=== PATIENT | male | born 1965 | race Caucasian/White ===

== ENCOUNTER 2023-07-07 10:26 | Emergency (ER) | payer OTHER, SELFPAY ==
[2023-07-07 10:34] VITALS: BP 124/59; PULSE 98; RESP 18; TEMP 36.7; O2SAT 95; BMI 27.8
--- NOTE | 2023-07-07 10:41 | W.ED.BACK ---
HPI - Back Pain/Injury General: Chief Complaint: Back Pain/Injury Stated Complaint: Hurt back Time Seen by Provider: 07/07/23 10:41 Source: patient Mode of arrival: ambulatory Limitations: no limitations History of Present Illness: Patient is a very nice 57-year-old male who presents to ED today with a complaint of lower back pain. Patient states he was crossing a fence when his boot got caught up causing him to fall onto the left hip. Patient states when he struck the ground he heard a pop in his back. Patient states he then laid on the ground as he could not move secondary to pain. He was later able to get up and was ambulatory here in the emergency department. He states pain does not radiate anywhere apart from his lower back. He is not having any numbness, tingling, loss of sensation to his lower extremities. Denies chest or abdominal pain. He states the left hip is not painful. MD elicited complaint: back pain Onset (ago): hour(s) Timing: constant Severity: moderate Similar Symptoms Previously: No Location: lumbar spine, right lower back and left lower back Radiation: none Exacerbating factors: movement and sitting upright Relieving factors: supine Context: turning/twisting and fall Associated symptoms: Deny abdominal pain, chills, dysuria, fatigue, fever(s), hematuria or syncope Work related injury: No Review of Systems Const: Denies: fever(s), chills, body aches, fatigue or malaise Eyes: Denies: change in vision Card: Denies: chest pain, palpitations, lightheadedness, syncope or pre-syncope Resp: Denies: dyspnea GI: Denies: abdominal pain : Denies: flank pain, dysuria or hematuria Musc: Reports: back pain; Denies: neck pain, extremity pain, extremity swelling, joint pain or joint swelling Skin/Breast: Denies: rash Neuro: Denies: headache(s), numbness in extremities, weakness in extremities or sensory changes Physical Exam Const: COMMON NORMALS: average body habitus, patient oriented x3, no limitations, healthy appearing, alert and well nourished GENERAL APPEARANCE: cooperative and in distress (appears uncomfortable secondary to pain) ORIENTATION/CONSCIOUSNESS: Yes awake, Yes oriented to person, Yes oriented to place and Yes oriented to time HENMT: COMMON NORMALS: normocephalic and atraumatic HEAD & SCALP: normal to inspection, normocephalic and atraumatic Resp: COMMON NORMALS: normal respiratory effort Cardio: COMMON NORMALS: regular rate and regular rhythm RATE: regular rate RHYTHM: regular rhythm GI: COMMON NORMALS: Normal to inspection, nondistended, normoactive bowel sounds present, Soft to palpation, non-tender and no masses PALPATION: Yes Soft to palpation : COMMON NORMALS: Yes no CVA tenderness BLADDER/KIDNEY EXAM: Yes no CVA tenderness Back/Pelvis: COMMON NORMALS: no CVA tenderness, thoracic and lumbar spine normal to inspection and no thoracic nor lumbar tenderness THORACIC SPINE/UPPER BACK: Yes normal to inspection, No thoracic spinal tenderness and No paraspinal muscle tenderness LUMBAR SPINE/LOWER BACK: Yes normal to inspection, Yes ROM limited, Yes pain with ROM, No lumbar spinal tenderness, Yes paraspinal muscle tenderness and Yes straight leg raise negative bilaterally PELVIS: Yes buttocks normal and No sciatic notch tenderness SACROILIAC JOINTS: Yes SI joints normal SACRUM: no tenderness COCCYX: no tenderness Extremity: COMMON NORMALS: normal to inspection and no clubbing, cyanosis or edema NARRATIVE EXTREMITY EXAM: bilateral DP/PT pulses present GENERAL: Yes normal exam except as noted Neuro: COMMON NORMALS: patient oriented x3, moves all extremities, no focal motor deficits and no sensory deficits noted SENSORIUM/ORIENTATION: Yes alert, Yes oriented to person, Yes oriented to place and Yes oriented to time GAIT: Yes Normal gait present MOTOR EXAM: 5/5 motor strength present throughout Skin: COMMON NORMALS: no rashes or lesions noted GENERAL SKIN EXAM: no rashes or lesions noted Course Vital Signs: Vital signs: Vital Signs Temperature 98.0 F 07/07/23 10:34 Pulse Rate 98 07/07/23 10:34 Respiratory Rate 18 07/07/23 11:10 Blood Pressure 124/59 07/07/23 10:34 Pulse Oximetry 95 07/07/23 10:34 Oxygen Delivery Me thod Room Air 07/07/23 10:34 MDM - Back Pain/Injury Medical Decision Making XR negative. Pain vastly improved after IV medications given here. He is currently rating it at a 1/10. He has no acute neurologic deficits. Nothing to suggest a more ominous etiology for his back pain. We will treat with anti-inflammatories, muscle relaxers, steroids. Recommend follow-up with primary care next week if symptoms do not seem to be improving. Return to ED precautions given. All radiology interpretation(s) finalized by discharge Discharge Plan Discharge Patient Disposition: Home Clinical Impression: Strain of lumbar region Qualifiers: Encounter type: initial encounter Qualified Code(s): S39.012A - Strain of muscle, fascia and tendon of lower back, initial encounter Condition: Stable Prescriptions: New methocarbamol 500 mg tablet 1,000 mg PO Q8H Qty: 30 0RF ibuprofen 800 mg tablet 800 mg PO Q8H PRN (Reason: pain) Qty: 20 0RF Medrol (Subhash) 4 mg tablets,dose pack See Rx Instructions .ROUTE .COMPLEX Qty: 21 0RF Rx Instructions: orally per package directions Discharge Orders: Discharge ED (Routine); Ordered 07/07/23 Ordered By: Michelle Metzger Referrals: Gely Kenyon FNP [Primary Care Provider] - Coding Level of Care Code ED Information Security Associate for [employer]
[2023-07-07 11:10] VITALS: RESP 18
[2023-07-07] MEDS: morphine 4 mg/mL SDV 1 mL IVP (11:10)
[2023-07-07] MEDS: ketorolac 60 mg/2 mL INJ 30 MG IVP (11:12)
[2023-07-07] MEDS: orphenadrine 30 mg/mL Inj 2 mL 60 MG IV (11:12)
[2023-07-07] MEDS: dexamethasone 10 mg/mL INJ 8 MG IV (11:13)
--- NOTE | 2023-07-07 11:44 | XR_ITS ---
WS: [id number] Exam: XR lumbar spine 2-3V* [id number] Date/Time of Exam: 07/07/2023 12:01 PM Reason For Exam: back injury No acute fracture or dislocation. Minimal spondylosis. Posterior elements are intact. No scoliosis. IMPRESSION: 1. Minimal degenerative changes. No fracture or malalignment.
== END 2023-07-07 12:29 | disposition home or self-care (01) ==
PROVIDERS: Emergency Provider Physician Assistant; PCP Nurse Practitioner Family
DX: S39.012A Strain of muscle, fascia and tendon of lower back, initial encounter (principal); W01.0XXA Fall on same level from slipping, tripping and stumbling without subsequent striking against object, initial encounter
CPT/HCPCS: 72100; 96374; 96375; 99284; J1100; J1885; J2270; J2360